=== PATIENT | female | born 1990 | race American Indian/Alaskan Native ===

== ENCOUNTER 2017-09-14 07:18 | Emergency (ER) | payer OTHER ==
[2017-09-14 07:27] VITALS: BP 100/52; PULSE 89; RESP 18; TEMP 98.2; O2SAT 100
[2017-09-14 08:20] LABS: BASO # 0.1 K/uL (0.0-0.2); BASO % 0.7 % (0.0-2.0); EOS % 0.6 % (0.0-4.0); HEMATOCRIT 38.6 % (34.0-47.0); LYMPH # 1.9 K/uL (1.0-4.3); MEAN CELL VOLUME 93.2 fl (81.0-99.0); MEAN CORPUSCULAR HEMOGLOBIN 30.8 pg (27.0-31.0); MEAN PLATELET VOLUME 9.2 fl (7.2-11.7); MONO # 0.9 K/uL (0.0-0.8); MONO % 11.6 % (0.0-10.0); NEUT # 4.6 K/uL (1.8-7.0); NEUT % 62.1 % (50.0-75.0); RED CELL DISTRIBUTION WIDTH 12.5 % (11.5-14.5); WHITE BLOOD COUNT 7.5 K/uL (4.8-10.8)
[2017-09-14 08:32] LABS: ALB/GLOB RATIO 1.1 (1.0-2.1); ALKALINE PHOSPHATASE 50 U/L (38-126); ALT/SGPT 35 U/L (9-52); AST/SGOT 19 U/L (14-36); BILIRUBIN,TOTAL 0.7 mg/dl (0.2-1.3); BLOOD UREA NITROGEN 14 mg/dl (7-17); CARBON DIOXIDE 26 mmol/L (22-30); CHLORIDE 105 mmol/L (98-107); GFR AFRICAN-AMERICAN > 60; GLUCOSE,RANDOM 90 mg/dL (65-105); LIPASE 25 U/L (23-300); POTASSIUM 4.1 MMOL/L (3.6-5.0); SODIUM 141 mmol/l (132-148); TOTAL PROTEIN 7.9 G/DL (6.3-8.2)
--- NOTE | 2017-09-14 08:34 | ED PDOC ---
HPI: Abdomen Time Seen by Provider: 09/14/17 07:47 Chief Complaint (Nursing): Abdominal Pain Chief Complaint (Provider): Abdominal pain History Per: Patient History/Exam Limitations: no limitations Onset/Duration Of Symptoms: Days (4), Intermittent Episodes Outside of [place] travel?: No Current Symptoms Are (Timing): Still Present Location Of Pain/Discomfort: RUQ Quality Of Discomfort: "Pain" Associated Symptoms: denies: Fever, Chills, Nausea, Vomiting, Diarrhea Exacerbating Factors: Supine, Deep Breaths Additional Complaint(s): 27yo female with no past medical history, presents to the ED for evaluation of right upper quadrant pain for the past 4 days. Patient states pain is intermittent and present mostly when she takes deep breath or when she is lying down. She has not taken any medication for her pain. Patient denies any nausea, vomiting, diarrhea, fever, chills. Of note, patient states she was constipated for the past couple days but had a bowel movement yesterday. She denies any other medical complaints. Abnormal Vaginal Bleeding: No Past Medical History Reviewed: Historical Data, Nursing Documentation, Vital Signs Vital Signs: Last Vital Signs Temp 98.2 F 09/14/17 07:27 Pulse 89 09/14/17 07:27 Resp 18 09/14/17 07:27 BP 100/52 L 09/14/17 07:27 Pulse Ox 100 09/14/17 10:57 - Medical History PMH: No Chronic Diseases - Surgical History Surgical History: No Surg Hx - Family History Family History: States: No Known Family Hx - Living Arrangements Living Arrangements: With Family - Social History Current smoker - smoking cessation education provided: No Ex-Smoker (has not smoked in the last 12 months): No Alcohol: None Drugs: Denies - Home Medications Home Medications: Ambulatory Orders Medication Instructions Recorded traMADol [Ultram] 50 mg PO TID PRN #15 tab 09/14/17 - Allergies Allergies/Adverse Reactions: Allergies Allergy/AdvReac Type Severity Reaction Status Date / Time No Known Allergies Allergy Verified 09/14/17 07:30 Review of Systems ROS Statement: Except As Marked, All Systems Reviewed And Found Negative Constitutional: Negative for: Fever, Chills Gastrointestinal: Positive for: Abdominal Pain (right upper quadrant ). Negative for: Nausea, Vomiting, Diarrhea Physical Exam - Reviewed Nursing Documentation Reviewed: Yes Vital Signs Reviewed: Yes - Physical Exam Appears: Positive for: Non-toxic, No Acute Distress Head Exam: Positive for: ATRAUMATIC, NORMAL INSPECTION, NORMOCEPHALIC Skin: Positive for: Normal Color Eye Exam: Positive for: Normal appearance Neck: Positive for: Normal Cardiovascular/Chest: Positive for: Regular Rate, Rhythm. Negative for: Murmur Respiratory: Positive for: Normal Breath Sounds. Negative for: Respiratory Distress Gastrointestinal/Abdominal: Positive for: Soft, Tenderness (right upper quadrant ) Back: Positive for: Normal Inspection Extremity: Positive for: Normal ROM Neurologic/Psych: Positive for: Alert, Oriented. Negative for: Motor/Sensory Deficits - Laboratory Results Result Diagrams: 09/14/17 08:12 09/14/17 08:12 - ECG O2 Sat by Pulse Oximetry: 100 (RA) Pulse Ox Interpretation: Normal Medical Decision Making Medical Decision Making: Time: 805 Impression: Right upper quadrant abdominal pain Differential: Galbladder disease, constipation, musculoskeletal pain Plan: -- US Galbladder Reassess Time: 1020 US Galbladder FINDINGS: LIVER: Measures 15.5 cm in length and appears within normal limits. No focal hepatic mass identified. The main portal vein appears patent with normal directional flow. No intrahepatic bile duct dilatation. GALLBLADDER: No gallstones. No gallbladder wall thickening or pericholecystic edema. Negative sonographic Mahmood's sign as assessed by the senior producer. COMMON BILE DUCT: Measures 4 mm. PANCREAS: Not well-visualized. RIGHT KIDNEY: Measures 10.7 x 5.7 x 3.4 cm. No obstructing calculus or hydronephrosis identified. AORTA: Limited visualization appears grossly unremarkable. IVC: Limited visualization appears grossly unremarkable. OTHER FINDINGS: None . IMPRESSION: No acute findings identified. See above. Scribe Attestation: Documented by Masha Chavis acting as a scribe for Raoul Silver MD. Provider Attestation: All medical record entries made by the Scribe were at my direction and personally dictated by me. I have reviewed the chart and agree that the record accurately reflects my personal performance of the history, physical exam, medical decision making, and the department course for this patient. I have also personally directed, reviewed, and agree with the discharge instructions and disposition. Disposition - Clinical Impression Clinical Impression: Abdominal pain, Colitis - Patient ED Disposition Is Patient to be Admitted: No Doctor Will See Patient In The: Office Counseled Patient/Family Regarding: Studies Performed, Diagnosis, Need For Followup - Disposition [facility]errals: [facility]] Disposition: Routine/Home Disposition Time: 16:21 Condition: GOOD Additional Instructions: Follow up with your PCP in 2-3 days. Prescriptions: traMADol [Ultram] 50 mg PO TID PRN #15 tab PRN Reason: Pain, Severe (8-10) Instructions: Abdominal Pain (ED), Colitis (ED)
--- NOTE | 2017-09-14 10:15 | US ---
HISTORY: ruq pain tenderness COMPARISON: None available. TECHNIQUE: Sonographic evaluation of the right upper quadrant of the abdomen. FINDINGS: LIVER: Measures 15.5 cm in length and appears within normal limits. No focal hepatic mass identified. The main portal vein appears patent with normal directional flow. No intrahepatic bile duct dilatation. GALLBLADDER: No gallstones. No gallbladder wall thickening or pericholecystic edema. Negative sonographic Mahmood's sign as assessed by the boilermaker apprentice. COMMON BILE DUCT: Measures 4 mm. PANCREAS: Not well-visualized. RIGHT KIDNEY: Measures 10.7 x 5.7 x 3.4 cm. No obstructing calculus or hydronephrosis identified. AORTA: Limited visualization appears grossly unremarkable. IVC: Limited visualization appears grossly unremarkable. OTHER FINDINGS: None . IMPRESSION: No acute findings identified. See above.
[2017-09-14] MEDS ORDERED: Iodixanol 320 MG/ML 100 ML BOTTLE IV ONE (13:25)
[2017-09-14] MEDS ORDERED: Sodium Chloride 0.9% 50 ML IV ONE (13:25)
--- NOTE | 2017-09-14 14:36 | CT ---
CTA chest PE protocol Indication: Chest pain Technique: Contiguous axial images were obtained through the chest with intravenous contrast enhancement. Sagittal and coronal reconstructions were generated and reviewed. This CT exam was performed using 1 or more of the falling dose reduction techniques: Automated exposure control, adjustment of the MAA and/or kV according to patient size, and/or use of iterative reconstruction technique. IV Contrast: 95 cc Visipaque Radiation dose (DLP): 612.42 MGy-cm. Comparison: None available. Findings: Visualized portions of the inferior thyroid gland appear unremarkable. The mediastinal and hilar vascular structures appear within normal limits. The heart appears within normal limits of size. No large central or segmental pulmonary embolus evident. No focal consolidation. No pleural effusion. No pneumothorax. No suspicious pulmonary nodules measuring greater than 5 mm. Limited visualized portions of the upper abdomen appear grossly unremarkable. Scoliosis. Impression: No large central or segmental pulmonary embolus identified.
--- NOTE | 2017-09-14 14:48 | CT ---
PROCEDURE: CT Abdomen and Pelvis with contrast HISTORY: ruq pain COMPARISON: Limited abdominal ultrasound performed 09/14/17 TECHNIQUE: Contrast dose: 95 cc Visipaque Radiation dose: Total exam DLP = 612.42 mGy-cm. This CT exam was performed using one or more of the following dose reduction techniques: Automated exposure control, adjustment of the mA and/or kV according to patient size, and/or use of iterative reconstruction technique. FINDINGS: LOWER THORAX: No visible consolidation, pleural effusion, or pneumothorax. LIVER: Unremarkable. GALLBLADDER AND BILE DUCTS: Unremarkable. PANCREAS: Unremarkable. SPLEEN: Unremarkable. ADRENALS: Unremarkable. KIDNEYS AND URETERS: The kidneys enhance symmetrically. No hydronephrosis or obstructing calculus identified. VASCULATURE: No aortic aneurysm. BOWEL: Stomach is nondistended. Lack of oral contrast limits evaluation for bowel pathology. Question colonic wall thickening of the right colon ; colitis cannot be excluded. Possible small bowel wall thickening ; correlate for enteritis. No evidence of bowel obstruction. APPENDIX: Limited visualization of the presumed appendix appears within normal limits of caliber (coronal image 48). . PERITONEUM: Small fluid evident adjacent to the inferior tip liver. Small pelvic free fluid. No definite free air. LYMPH NODES: No bulky adenopathy identified. BLADDER: Unremarkable. REPRODUCTIVE: The uterus is present. BONES: No acute osseous abnormality is detected. OTHER FINDINGS: None. IMPRESSION: Lack of oral contrast limits evaluation for bowel pathology. Question colonic wall thickening of the right colon ; colitis cannot be excluded. Possible small bowel wall thickening ; correlate for enteritis. Small fluid adjacent to the inferior to the liver. Small pelvic free fluid.
[2017-09-14] MEDS ORDERED: Oxycodone/Acetaminophen 5/325 mg Tab ONE (16:38)
== END 2017-09-14 16:43 | disposition home or self-care (01) ==
LOC: H.ER 07:18
DX: K52.9 Noninfective gastroenteritis and colitis, unspecified (principal)
CPT/HCPCS: 71275; 74177; 76705; 80053; 81025; 83690; 85025; 85378; 99284; Q9967